=== PATIENT | female | born 1975 | race Caucasian/White ===

== ENCOUNTER 2017-07-25 07:58 | Outpatient (CLI) | payer MEDICAID | END 2017-07-25 08:26 | disposition home or self-care (01) | LOC: OBT 07:58 → L-D 07:59 → OBT 08:26 | DX: O26.892 Other specified pregnancy related conditions, second trimester (principal); R11.10 Vomiting, unspecified; R19.7 Diarrhea, unspecified; R51 Headache; O34.219 Maternal care for unspecified type scar from previous cesarean delivery; O09.522 Supervision of elderly multigravida, second trimester; Z3A.28 28 weeks gestation of pregnancy | CPT/HCPCS: Z7500 ==

== ENCOUNTER 2017-07-25 08:42 | Emergency (ER) | payer MEDICAID ==
[2017-07-25] MEDS: SOD CHLORIDE 0.9% 1,000 ML IV (11:32)
[2017-07-25 11:33] LABS: ADD MAN DIFF? NO
[2017-07-25 11:44] LABS: ADD UMIC YES; UR ASCORBIC ACID NEGATIVE (NEGATIVE); UR BILIRUBIN (Dip) NEGATIVE (NEGATIVE); UR BLOOD (Dip) NEGATIVE (NEGATIVE); UR CLARITY SLIGHTLY CLOUDY (CLEAR); UR COLOR YELLOW (YELLOW); UR GLUCOSE (Dip) NEGATIVE (NEGATIVE); UR KETONES (Dip) 1+ mg/dL (NEGATIVE); UR LEUKOCYTE ESTERASE (Dip) NEGATIVE Leu/ul (NEGATIVE); UR NITRITE (Dip) NEGATIVE (NEGATIVE); UR RBC 1 /HPF (0-5); UR SPECIFIC GRAVITY (Dip) 1.021 (1.003-1.030); UR SQUAMOUS EPITHELIAL CELL FEW /HPF (FEW); UR TOTAL PROTEIN (Dip) 1+ mg/dl (NEGATIVE); UR UROBILINOGEN (Dip) 1+ mg/dL (NEGATIVE); UR WBC 2 /HPF (0-5)
[2017-07-25 11:46] LABS: BASOPHILS % 0.3 % (0.0-2.0); EOSINOPHILS % 0.3 % (0.0-7.0); HEMATOCRIT 40.1 % (37.0-47.0); HEMOGLOBIN 13.9 g/dl (12.0-16.0); LYMPHOCYTES # 1.1 10^3/ul (0.8-2.9); LYMPHOCYTES % 8.7 % (15.0-51.0); MEAN CORPUSCULAR HEMOGLOBIN 32.3 pg (29.0-33.0); MEAN CORPUSCULAR HGB CONC 34.7 g/dl (32.0-37.0); MEAN CORPUSCULAR VOLUME 93.3 fl (82.0-101.0); MEAN PLATELET VOLUME 9.1 fl (7.4-10.4); MONOCYTE # 0.6 10^3/ul (0.3-0.9); MONOCYTES % 4.8 % (0.0-11.0); NEUTROPHIL # 10.5 10^3/ul (1.6-7.5); NEUTROPHILS % 85.4 % (39.0-77.0); PLATELET COUNT 246 10^3/UL (140-415)
[2017-07-25 11:46] LABS: WHITE BLOOD COUNT 12.3 10^3/ul (4.8-10.8)
[2017-07-25 11:53] LABS: ALANINE AMINOTRANSFERASE 32 IU/L (13-69); ALBUMIN 3.7 g/dl (3.3-4.9); ALBUMIN/GLOBULIN RATIO 1.15; ALKALINE PHOSPHATASE 119 IU/L (42-121); ANION GAP 15 (8-16); ASPARTATE AMINO TRANSFERASE 26 IU/L (15-46); BILIRUBIN,INDIRECT 0.3 mg/dl (0-1.1); BILIRUBIN,TOTAL 0.3 mg/dl (0.2-1.3); BLOOD UREA NITROGEN 6 mg/dl (7-20); CALCIUM 9.1 mg/dl (8.4-10.2); CARBON DIOXIDE 25 mmol/L (21-31); CHLORIDE 104 mmol/L (97-110); CREATININE 0.43 mg/dl (0.44-1.00); GLUCOSE 95 mg/dl (70-220); LIPASE 119 U/L (23-300); POTASSIUM 3.9 mmol/L (3.5-5.1); SODIUM 140 mmol/L (135-144); TOTAL PROTEIN 6.9 g/dl (6.1-8.1)
== END 2017-07-25 13:57 | disposition home or self-care (01) ==
LOC: FTE 08:42
DX: O21.9 Vomiting of pregnancy, unspecified (principal); O99.89 Other specified diseases and conditions complicating pregnancy, childbirth and the puerperium; R19.7 Diarrhea, unspecified; Z3A.28 28 weeks gestation of pregnancy
CPT/HCPCS: 36415; 80053; 81001; 83690; 85025; 99284-25

== ENCOUNTER 2017-08-12 11:26 | Outpatient (CLI) | payer MEDICAID ==
[2017-08-12 12:28] LABS: ADD UMIC YES; UR ASCORBIC ACID NEGATIVE (NEGATIVE); UR BILIRUBIN (Dip) NEGATIVE (NEGATIVE); UR BLOOD (Dip) NEGATIVE (NEGATIVE); UR CLARITY SLIGHTLY CLOUDY (CLEAR); UR COLOR YELLOW (YELLOW); UR GLUCOSE (Dip) NEGATIVE (NEGATIVE); UR KETONES (Dip) TRACE mg/dL (NEGATIVE); UR LEUKOCYTE ESTERASE (Dip) 2+ Leu/ul (NEGATIVE); UR MUCUS FEW /HPF (NONE SEEN); UR NITRITE (Dip) NEGATIVE (NEGATIVE); UR RBC 1 /HPF (0-5); UR SPECIFIC GRAVITY (Dip) 1.019 (1.003-1.030); UR SQUAMOUS EPITHELIAL CELL FEW /HPF (FEW); UR TOTAL PROTEIN (Dip) NEGATIVE (NEGATIVE); UR UROBILINOGEN (Dip) NEGATIVE (NEGATIVE); UR WBC 11 /HPF (0-5)
== END 2017-08-12 12:48 | disposition home or self-care (01) ==
LOC: OBT 11:26 → L-D 11:26 → OBT 12:48
DX: O23.43 Unspecified infection of urinary tract in pregnancy, third trimester (principal); O09.521 Supervision of elderly multigravida, first trimester; Z3A.30 30 weeks gestation of pregnancy
CPT/HCPCS: 76817; 76818; 81001

== ENCOUNTER 2017-08-16 03:20 | Emergency (ER) | payer MEDICAID | END 2017-08-16 08:45 | disposition left against medical advice (07) | LOC: FTE 08:45 | DX: Z53.21 Procedure and treatment not carried out due to patient leaving prior to being seen by health care provider (principal) ==

== ENCOUNTER 2017-08-16 04:19 | Outpatient (CLI) | payer MEDICAID ==
[2017-08-16 07:12] LABS: ADD UMIC YES; UR ASCORBIC ACID NEGATIVE (NEGATIVE); UR BACTERIA FEW /HPF (NONE SEEN); UR BILIRUBIN (Dip) NEGATIVE (NEGATIVE); UR BLOOD (Dip) NEGATIVE (NEGATIVE); UR CLARITY CLEAR (CLEAR); UR COLOR YELLOW (YELLOW); UR GLUCOSE (Dip) NEGATIVE (NEGATIVE); UR KETONES (Dip) 1+ mg/dL (NEGATIVE); UR LEUKOCYTE ESTERASE (Dip) 1+ Leu/ul (NEGATIVE); UR MUCUS FEW /HPF (NONE SEEN); UR NITRITE (Dip) NEGATIVE (NEGATIVE); UR RBC 1 /HPF (0-5); UR SPECIFIC GRAVITY (Dip) 1.012 (1.003-1.030); UR SQUAMOUS EPITHELIAL CELL FEW /HPF (FEW); UR TOTAL PROTEIN (Dip) NEGATIVE (NEGATIVE); UR UROBILINOGEN (Dip) NEGATIVE (NEGATIVE); UR WBC 2 /HPF (0-5)
[2017-08-16 08:01] LABS: ALANINE AMINOTRANSFERASE 26 IU/L (13-69); ALBUMIN 3.3 g/dl (3.3-4.9); ALBUMIN/GLOBULIN RATIO 0.97; ALKALINE PHOSPHATASE 118 IU/L (42-121); ANION GAP 13 (8-16); ASPARTATE AMINO TRANSFERASE 26 IU/L (15-46); BILIRUBIN,INDIRECT 0.1 mg/dl (0-1.1); BILIRUBIN,TOTAL 0.1 mg/dl (0.2-1.3); BLOOD UREA NITROGEN 7 mg/dl (7-20); CARBON DIOXIDE 24 mmol/L (21-31); CHLORIDE 105 mmol/L (97-110); CREATININE 0.46 mg/dl (0.44-1.00); GLUCOSE 91 mg/dl (70-220); POTASSIUM 3.6 mmol/L (3.5-5.1); SODIUM 138 mmol/L (135-144); TOTAL PROTEIN 6.7 g/dl (6.1-8.1)
== END 2017-08-16 09:18 | disposition home or self-care (01) ==
LOC: OBT 04:19 → L-D 04:23 → OBT 09:18
DX: O21.9 Vomiting of pregnancy, unspecified (principal); O34.219 Maternal care for unspecified type scar from previous cesarean delivery; O09.523 Supervision of elderly multigravida, third trimester; Z79.2 Long term (current) use of antibiotics; O23.43 Unspecified infection of urinary tract in pregnancy, third trimester; Z3A.31 31 weeks gestation of pregnancy
CPT/HCPCS: 80053; 81001

== ENCOUNTER 2017-09-10 19:01 | Outpatient (CLI) | payer MEDICAID ==
[2017-09-10 20:11] LABS: ADD UMIC YES; UR ASCORBIC ACID 40 mg/dL (NEGATIVE); UR BILIRUBIN (Dip) NEGATIVE (NEGATIVE); UR BLOOD (Dip) NEGATIVE (NEGATIVE); UR CLARITY SLIGHTLY CLOUDY (CLEAR); UR COLOR YELLOW (YELLOW); UR GLUCOSE (Dip) NEGATIVE (NEGATIVE); UR KETONES (Dip) 2+ mg/dL (NEGATIVE); UR LEUKOCYTE ESTERASE (Dip) 2+ Leu/ul (NEGATIVE); UR MUCUS FEW /HPF (NONE SEEN); UR NITRITE (Dip) NEGATIVE (NEGATIVE); UR RBC 1 /HPF (0-5); UR SPECIFIC GRAVITY (Dip) 1.025 (1.003-1.030); UR SQUAMOUS EPITHELIAL CELL FEW /HPF (FEW); UR TOTAL PROTEIN (Dip) NEGATIVE (NEGATIVE); UR UROBILINOGEN (Dip) NEGATIVE (NEGATIVE); UR WBC 18 /HPF (0-5)
[2017-09-10] MEDS: TERBUTALINE 1 MG/ML INJ SC (20:50)
[2017-09-10] MEDS: LACTATED RINGER'S 1,000 ML IV ×2 (20:51→21:44)
== END 2017-09-10 23:05 | disposition home or self-care (01) ==
LOC: OBT 19:01 → L-D 19:05
DX: O47.03 False labor before 37 completed weeks of gestation, third trimester (principal); O09.523 Supervision of elderly multigravida, third trimester; Z3A.35 35 weeks gestation of pregnancy
CPT/HCPCS: 36415; 81001; 87086; 96360; 96361

== ENCOUNTER 2017-09-20 15:34 | Outpatient (CLI) | payer MEDICAID | END 2017-09-20 16:10 | disposition home or self-care (01) | LOC: OBT 15:34 → L-D 15:36 → OBT 16:10 | DX: O99.513 Diseases of the respiratory system complicating pregnancy, third trimester (principal); R05 Cough; J02.9 Acute pharyngitis, unspecified; O09.523 Supervision of elderly multigravida, third trimester; O34.219 Maternal care for unspecified type scar from previous cesarean delivery; Z3A.36 36 weeks gestation of pregnancy | CPT/HCPCS: Z7500 ==

== ENCOUNTER 2017-09-20 16:21 | Emergency (ER) | payer MEDICAID ==
[2017-09-20 16:46] LABS: URINE BLOOD (Dip) POC Trace-intact (NEGATIVE); URINE GLUCOSE (Dip) POC Negative (NEGATIVE); URINE KETONES (Dip) POC Negative (NEGATIVE); URINE LEUKOCYTE EST (Dip) POC 1+ (NEGATIVE); URINE NITRITE (Dip) POC Negative (NEGATIVE); URINE TOTAL PROTEIN POC Negative (NEGATIVE)
[2017-09-20] MEDS: predniSONE 20 MG TAB PO (16:51)
[2017-09-20] MEDS: ACETAMINOPHEN 500 MG TAB PO (16:51)
[2017-09-20] MEDS: LEVALBUTEROL (NEB) 0.63 MG/3 ML AMP HHN (17:07)
== END 2017-09-20 17:39 | disposition home or self-care (01) ==
LOC: FTE 16:21
DX: O99.513 Diseases of the respiratory system complicating pregnancy, third trimester (principal); J06.9 Acute upper respiratory infection, unspecified; R05 Cough; Z3A.36 36 weeks gestation of pregnancy
CPT/HCPCS: 81003; 94664; 99283-25

== ENCOUNTER 2017-10-02 00:50 | Outpatient (CLI) | payer MEDICAID ==
[2017-10-02] MEDS: LACTATED RINGER'S 1,000 ML IV ×2 (01:56→03:15)
[2017-10-02] MEDS ORDERED: MISOPROSTOL 200 MCG TAB PR (04:00)
[2017-10-02] MEDS ORDERED: METHYLERGONOVINE 0.2 MG INJ IM (04:00)
[2017-10-02] MEDS ORDERED: CARBOPROST 250 MCG INJ IM (04:00)
[2017-10-02] MEDS ORDERED: OXYTOCIN 30 UNITS/LR 500 ML IV (04:00)
[2017-10-02 04:12] LABS: ADD UMIC YES; UR ASCORBIC ACID NEGATIVE (NEGATIVE); UR BILIRUBIN (Dip) NEGATIVE (NEGATIVE); UR BLOOD (Dip) 1+ mg/dL (NEGATIVE); UR BUDDING YEAST FEW /HPF (NONE SEEN); UR CLARITY SLIGHTLY CLOUDY (CLEAR); UR COLOR STRAW (YELLOW); UR GLUCOSE (Dip) NEGATIVE (NEGATIVE); UR KETONES (Dip) NEGATIVE (NEGATIVE); UR LEUKOCYTE ESTERASE (Dip) 3+ Leu/ul (NEGATIVE); UR NITRITE (Dip) NEGATIVE (NEGATIVE); UR RBC 11 /HPF (0-5); UR SPECIFIC GRAVITY (Dip) 1.006 (1.003-1.030); UR SQUAMOUS EPITHELIAL CELL FEW /HPF (FEW); UR TOTAL PROTEIN (Dip) NEGATIVE (NEGATIVE); UR UROBILINOGEN (Dip) NEGATIVE (NEGATIVE); UR WBC 54 /HPF (0-5)
[2017-10-02 06:09] LABS: ADD MAN DIFF? NO
[2017-10-02 06:22] LABS: BASOPHILS % 0.3 % (0.0-2.0); EOSINOPHILS # 0.1 10^3/ul (0.0-0.5); EOSINOPHILS % 0.6 % (0.0-7.0); HEMATOCRIT 34.8 % (37.0-47.0); HEMOGLOBIN 12.1 g/dl (12.0-16.0); LYMPHOCYTES # 3.5 10^3/ul (0.8-2.9); LYMPHOCYTES % 39.5 % (15.0-51.0); MEAN CORPUSCULAR HEMOGLOBIN 31.8 pg (29.0-33.0); MEAN CORPUSCULAR HGB CONC 34.8 g/dl (32.0-37.0); MEAN CORPUSCULAR VOLUME 91.3 fl (82.0-101.0); MEAN PLATELET VOLUME 10.5 fl (7.4-10.4); MONOCYTE # 0.7 10^3/ul (0.3-0.9); MONOCYTES % 8.2 % (0.0-11.0); NEUTROPHIL # 4.5 10^3/ul (1.6-7.5); NEUTROPHILS % 51.1 % (39.0-77.0); PLATELET COUNT 213 10^3/UL (140-415); RED BLOOD COUNT 3.81 10^6/ul (4.20-5.40); RED CELL DISTRIBUTION WIDTH 13.5 % (11.5-14.5)
[2017-10-02 06:22] LABS: WHITE BLOOD COUNT 8.8 10^3/ul (4.8-10.8)
[2017-10-02 06:41] LABS: INR 0.88; PT RATIO 0.9
[2017-10-02 07:13] LABS: HEPATITIS B SURFACE ANTIGEN NEGATIVE (NEGATIVE)
[2017-10-02] MEDS: CEFTRIAXONE 1 GM/50 ML (PMX) 50 ML IVPB (09:56)
[2017-10-02] MEDS ORDERED: SOD CHLORIDE 0.9% 1,000 ML IV (10:00)
[2017-10-02 21:17] LABS: RAPID PLASMA REAGIN NONREACTIVE (NR)
== END 2017-10-02 10:50 | disposition home or self-care (01) ==
LOC: OBT 00:50 → L-D 00:50 → OBT 04:00 → L-D 04:00 → OBT 10:50
DX: O62.9 Abnormality of forces of labor, unspecified (principal); O34.219 Maternal care for unspecified type scar from previous cesarean delivery; O09.523 Supervision of elderly multigravida, third trimester; Z3A.38 38 weeks gestation of pregnancy
CPT/HCPCS: 36415; 81001; 85025; 85610; 85730; 86592; 86850; 86900; 86901; 87340; 96360; 96361; 96365

== ENCOUNTER 2017-10-10 06:17 | Inpatient (IN) | payer MEDICAID ==
[2017-10-10] MEDS ORDERED: OXYTOCIN 30 UNITS/LR 500 ML IV ×2 (07:00→17:30)
[2017-10-10] MEDS ORDERED: MISOPROSTOL 200 MCG TAB PR ×2 (07:00→17:30)
[2017-10-10] MEDS ORDERED: CARBOPROST 250 MCG INJ IM ×2 (07:00→17:30)
[2017-10-10] MEDS ORDERED: METHYLERGONOVINE 0.2 MG INJ IM ×2 (07:00→17:30)
[2017-10-10] MEDS ORDERED: CEFAZOLIN 2 GM/50 ML (PMX) 50 ML IVPB (07:25)
[2017-10-10] MEDS: LACTATED RINGER'S 1,000 ML IV ×4 (07:59→18:24)
[2017-10-10 08:05] LABS: ADD MAN DIFF? NO
[2017-10-10 08:08] LABS: BASOPHILS % 0.5 % (0.0-2.0); EOSINOPHILS # 0.1 10^3/ul (0.0-0.5); EOSINOPHILS % 0.7 % (0.0-7.0); HEMATOCRIT 37.5 % (37.0-47.0); HEMOGLOBIN 13.1 g/dl (12.0-16.0); LYMPHOCYTES # 2.7 10^3/ul (0.8-2.9); LYMPHOCYTES % 36.5 % (15.0-51.0); MEAN CORPUSCULAR HEMOGLOBIN 32.2 pg (29.0-33.0); MEAN CORPUSCULAR HGB CONC 34.9 g/dl (32.0-37.0); MEAN CORPUSCULAR VOLUME 92.1 fl (82.0-101.0); MEAN PLATELET VOLUME 10.2 fl (7.4-10.4); MONOCYTE # 0.6 10^3/ul (0.3-0.9); MONOCYTES % 8.5 % (0.0-11.0); NEUTROPHIL # 3.9 10^3/ul (1.6-7.5); NEUTROPHILS % 53.5 % (39.0-77.0); PLATELET COUNT 186 10^3/UL (140-415); RED BLOOD COUNT 4.07 10^6/ul (4.20-5.40); RED CELL DISTRIBUTION WIDTH 13.8 % (11.5-14.5)
[2017-10-10 08:08] LABS: WHITE BLOOD COUNT 7.3 10^3/ul (4.8-10.8)
[2017-10-10 08:29] LABS: INR 0.87; PROTIME 11.9 Sec (11.9-14.9); PT RATIO 0.9
[2017-10-10 08:30] LABS: PARTIAL THROMBOPLASTIN TIME 26.6 Sec (25.0-35.0)
[2017-10-10 08:57] LABS: HEPATITIS B SURFACE ANTIGEN NEGATIVE (NEGATIVE)
[2017-10-10] MEDS ORDERED: morphine SULFATE/PF (10 MG/10 ML) INJ (13:28)
[2017-10-10] MEDS ORDERED: PHENYLephrine (100 MCG/ML) 5ML SYG (13:49)
[2017-10-10] MEDS ORDERED: FENTAnyl 50 MCG/ML VIAL (13:58)
[2017-10-10] MEDS ORDERED: DEXAMETHASONE 4 MG/ML 1 ML INJ (14:02)
[2017-10-10] MEDS ORDERED: ONDANSETRON 4 MG INJ (14:03)
[2017-10-10] MEDS ORDERED: KETOROLAC 30 MG INJ (14:14)
[2017-10-10] MEDS: OXYTOCIN 30 UNITS/LR 500 ML IV ×2 (14:47→17:10)
[2017-10-10] MEDS: CEFAZOLIN 2 GM/50 ML (PMX) 50 ML IV (14:48)
[2017-10-10] MEDS ORDERED: ONDANSETRON 4 MG INJ IV (15:00)
[2017-10-10] MEDS ORDERED: morphine 2 MG INJ IV (15:00)
[2017-10-10] MEDS ORDERED: ZOLPIDEM 5 MG TAB PO (15:00)
[2017-10-10] MEDS ORDERED: NALOXONE (0.4 MG/ML) INJ IV (15:00)
[2017-10-10] MEDS ORDERED: DIPHENHYDRAMINE 50 MG INJ IV (15:00)
[2017-10-10 15:02] LABS: RAPID PLASMA REAGIN NONREACTIVE (NR)
[2017-10-10] MEDS: morphine 2 MG INJ IV (16:15)
[2017-10-10] MEDS ORDERED: NACL 0.9% 3 ML SYG IV (17:30)
[2017-10-10] MEDS: KETOROLAC 30 MG INJ IV (23:06)
[2017-10-11] MEDS: LACTATED RINGER'S 1,000 ML IV ×2 (05:59→09:10)
[2017-10-11] MEDS: KETOROLAC 30 MG INJ IV (09:34)
[2017-10-11] MEDS: LANOLIN 7 GM TUBE TOP (11:40)
[2017-10-11] MEDS: INFLUENZA VIRUS VACCINE 0.5 ML (DISPENSING) IM* (13:36)
[2017-10-11] MEDS: IBUPROFEN 800 MG TAB PO ×2 (14:50→22:08)
[2017-10-11] MEDS: HYDROCODONE/APAP (5/325) TAB PO (16:42)
[2017-10-11 19:00] LABS: ADD MAN DIFF? NO
[2017-10-11 19:01] LABS: WHITE BLOOD COUNT 9.4 10^3/ul (4.8-10.8)
[2017-10-11 19:01] LABS: BASOPHILS % 0.3 % (0.0-2.0); EOSINOPHILS % 0.4 % (0.0-7.0); HEMATOCRIT 30.4 % (37.0-47.0); HEMOGLOBIN 10.6 g/dl (12.0-16.0); LYMPHOCYTES # 2.9 10^3/ul (0.8-2.9); LYMPHOCYTES % 30.9 % (15.0-51.0); MEAN CORPUSCULAR HEMOGLOBIN 32.5 pg (29.0-33.0); MEAN CORPUSCULAR HGB CONC 34.9 g/dl (32.0-37.0); MEAN CORPUSCULAR VOLUME 93.3 fl (82.0-101.0); MEAN PLATELET VOLUME 9.9 fl (7.4-10.4); MONOCYTE # 0.8 10^3/ul (0.3-0.9); MONOCYTES % 8.1 % (0.0-11.0); NEUTROPHIL # 5.6 10^3/ul (1.6-7.5); PLATELET COUNT 159 10^3/UL (140-415); RED BLOOD COUNT 3.26 10^6/ul (4.20-5.40); RED CELL DISTRIBUTION WIDTH 14.4 % (11.5-14.5)
[2017-10-12] MEDS: IBUPROFEN 800 MG TAB PO ×3 (06:30→21:40)
[2017-10-12] MEDS: HYDROCODONE/APAP (5/325) TAB PO ×2 (10:19→20:09)
[2017-10-13] MEDS: IBUPROFEN 800 MG TAB PO ×2 (05:37→14:14)
[2017-10-13] MEDS ORDERED: MEASLES,MUMPS,RUBELLA VACCINE INJ SC* (09:00)
[2017-10-13] MEDS: NA PHOSPHATE/BIPHOS 133 ML ENEMA PR (09:39)
[2017-10-13] MEDS: HYDROCODONE/APAP (5/325) TAB PO (12:10)
[2017-10-13] MEDS: DIPHTH/TET/ACEL PERTUSS (ADULT) 0.5 ML VIAL IM* (14:07)
== END 2017-10-13 16:27 | disposition home or self-care (01) | DRG 766 ==
LOC: L-D 06:17 → PP1 17:03
PROVIDERS: Obstetrics & Gynecology
PROC: 10D00Z1 Extraction of Products of Conception, Low, Open Approach (ICD-10-PCS; principal; 2017-10-10 09:00)
PROC: 3E033VJ Introduction of Other Hormone into Peripheral Vein, Percutaneous Approach (ICD-10-PCS; 2017-10-10 09:00)
DX: O34.211 Maternal care for low transverse scar from previous cesarean delivery (principal); Z37.0 Single live birth; Z3A.39 39 weeks gestation of pregnancy
CPT/HCPCS: 85025; 85610; 85730; 86592; 86850; 86900; 86901; 87340; 90686; 90715; 99464

== ENCOUNTER 2017-11-18 09:24 | Emergency (ER) | payer MEDICAID | END 2017-11-18 10:30 | disposition home or self-care (01) | LOC: FTE 09:24 | DX: N64.59 Other signs and symptoms in breast (principal) | CPT/HCPCS: 99283; Z7502 ==

== ENCOUNTER 2018-09-23 16:55 | Emergency (ER) | payer MEDICAID ==
[2018-09-23] MEDS: ACETAMINOPHEN 500 MG TAB PO (21:37)
== END 2018-09-23 21:39 | disposition home or self-care (01) ==
LOC: FTE 21:39
DX: J01.00 Acute maxillary sinusitis, unspecified (principal)
CPT/HCPCS: 99283; Z7502